=== PATIENT | male | born 1945 | race Caucasian/White ===

== ENCOUNTER 2020-10-01 11:53 | Inpatient (IN) | payer MEDICARE ==
[~2020-10-01] VITALS: Ht 182.9 cm; Wt 102.5 kg
[2020-10-01] MEDS ORDERED: CALCIUM 600 MG1 EAC2 PO (15:44)
[2020-10-01] MEDS ORDERED: ASPIRIN 81M81 MG/TA2 PO (15:47)
[2020-10-01] MEDS ORDERED: CATAPRES 0.1MG0.1 MG PO (15:49)
[2020-10-01] MEDS ORDERED: PLAVIX 75MG TAB75 MG PO (16:20)
[2020-10-01] MEDS ORDERED: HCTZ 25MG TAB25 MG PO (16:21)
[2020-10-01] MEDS ORDERED: COZAAR 50MG50 MG/TAB PO (16:23)
[2020-10-01] MEDS ORDERED: MAG-OX 400400 MG/TAB PO (16:24)
[2020-10-01] MEDS ORDERED: KAPSPARGO SPRIN25 MG PO (16:25)
[2020-10-01] MEDS ORDERED: ZOCOR 40MG40 MG PO (16:28)
[2020-10-01] MEDS ORDERED: GLUCOPHAGE1000 MG PO (16:29)
[2020-10-01] MEDS ORDERED: K-DUR20 MEQ PO (16:40)
[2020-10-01 16:56] VITALS: BP 142/80; PULSE 83; TEMP 98.3
[2020-10-01] MEDS ORDERED: NOVOLOG 100U100 U/M1 SQ (17:05)
[2020-10-01] MEDS ORDERED: ANUSOL HC CREAM30 GM TP (19:21)
[2020-10-01] MEDS ORDERED: GOOD SENSE ANTI-IT1% TP (19:21)
[2020-10-01] MEDS ORDERED: ATHLETE'S FOOT1% TP (19:22)
[2020-10-01 19:24] VITALS: BP 142/80; PULSE 83; TEMP 98.3
--- NOTE | 2020-10-01 19:40 | NUR ---
PT WAS BROUGHT FROM [facility] BY EMS TO ROOM 337 AROUND 1530. PT ALERT BUT ORIENTED ONLY TO NAME AND TIME OF DAY BASED ON WHAT HE IS DOING. PT ABLE TO ROLL WELL WITH MOD ASSIST IN BED, AND REPOSITIONS WELL IN BED. PT NOT ABLE TO FEED SELF OF DRINK ON OWN, UNABLE TO FOLLOW VERBAL CUES, NEEDS FEEDING ASSISTANCE, Q2 CHECK FOR INCONTINENCE AND TURNING. PT'S MED REC COMPLETED AND ASSESSMENT COMPLETED. PT BLIND IN LEFT EYE. TAKES PILLS CRUSHED IN PUDDING WELL FOLLOWED BY WATER THIS EVENING.
--- NOTE | 2020-10-01 20:00 | NUR ---
PT UNABLE TO ANSWER ASSESSMENT INTAKE QUESTIONS D/T IMPAIRED COGNITIVE STATUS.
--- NOTE | 2020-10-01 21:00 | NUR ---
PT RESTING IN BED. VERY FIDGITY. LT SIDED WEAKNESS. PT ANSWERS SIMPLE QUESTIONS ('S NAME, CITY HE LIVES IN & MONTH OF ) BUT AND CURRENT MONTH INCORRECT. DOESNT KNOW WHERE HE IS. SPEECH CLEAR. LT EYE BLIND BASELINE. NEEDS CUED FREQUENTLY. PT TAKES GOWN OFF MULTIPLE TIMES. BED ALARM ON SENSITIVITY LEVEL. CALL LIGHT IN REACH. PT SPILLED H20. INCONTINENT OF URINE. CHANGED DIAPERS. PT SCRATCHING AT [place]LIE AREA. CLEANED WELL AND APPLIED HYDROCORTISONE OINTMENT.
--- NOTE | 2020-10-01 22:00 | NUR ---
TOOK PILLS WITH PUDDING BUT CHEWED PILLS UP. PT ABLE TO DRINK WITH STRAW WELL. NO CHOKING.
--- NOTE | 2020-10-02 03:09 | NUR ---
PT INCONTINENT OF URINE. PT KEEPS TAKING CLOTHES, DIAPER AND LINENS OFF. PT CLEANED UP AND REPOSITIONED. BED ALARM SET. CALL LIGHT IN REACH.
[2020-10-02 05:42] VITALS: BP 164/96; PULSE 90; TEMP 97.7
--- NOTE | 2020-10-02 05:56 | NUR ---
PT RESTLESS THROUGH THE NIGHT. INCONTINENT OF URINE. CLEANED AND DISPER CHANGED AT THIS TIME.
--- NOTE | 2020-10-02 06:00 | NUR ---
PLACED ANOTHER MEPILEX ON LT HEEL.
--- NOTE | 2020-10-02 08:15 | NUR ---
GURJIT WITH OT PRESENT IN ROOM. PATIENT RESTING IN BED THIS MORNING. PATIENT SAT UP AT THE EDGE OF THE BED WITH VERBAL QUEING AND ASSISTANCE OF OT. PATIENT DENYING COMPLAINTS OF PAIN AT THIS TIME. AM MEDICATIONS CRUSHED AND ADMINISTERED WITH CHOCOLATE PUDDING. PATIENT WAS ABLE TO AMBULATE TO THE BATHROOM WITH 1-2 MIN-MOD ASSIST GB&WALKER. PATIENT REQUIRES A LOT OF VERAL QUES WITH AMBULATION. WILL COMPLETE SHIFT ASSESSMENT AT A LATER TIME. OT COMPLETING HYGIENE CARES WITH PATIENT. CALL LIGHT IN REACH. NO ADDITIONAL NEEDS AT THIS TIME.
[2020-10-02 08:23] LABS: CALCIUM 9.5 mg/dL (8.4-10.2); CREATININE, serum 0.79 (0.66-1.25); POTASSIUM 3.7 mmol/L (3.4-5.0)
--- NOTE | 2020-10-02 12:39 | NUR ---
stopped by but nothing needed at this time.
[2020-10-02 17:27] VITALS: BP 116/81; PULSE 87; TEMP 97.9
--- NOTE | 2020-10-02 18:50 | NUR ---
THIS NURSE AND WAITER/WAITRESS COCKTAIL LOUNGE CHANGED PATIENT AND ASSISTED PATIENT INTO BED. BED ALARM ON. CALL LIGHT IN REACH. REPORT GIVEN TO GREG SHAFER.
--- NOTE | 2020-10-02 21:00 | NUR ---
PT RESTING IN BED. CONFUSED. TALKING NUMBERS AND COMPUTERS W/PERCENTAGES. NOT AWARE OF PLACE OR TIME. PT COOPERATIVE. INCONTINENT OF URINE. WEARS ADULT DIAPERS. TAKE CLOTHING AND LINENS OFF FREQUENTLY. TOOK HS PILLS CRUSHED WITH PUDDING. TOOK GOOD DRINK OF H20. NO CHOKING. BASELINE BLIND LT EYE. CALL LIGHT IN REACH. BED ALARM SET.
[2020-10-03 05:47] VITALS: BP 175/60; PULSE 86; TEMP 98
--- NOTE | 2020-10-03 08:13 | NUR ---
PATIENT SITTING UP IN THE BED EATING BREAKFAST TRAY. PATIENT DENIES PAIN. PATIENT IS FIDGETING AND RESTLESS IN BED. PATIENT GIVEN PRN TYLENOL WITH MORNING MEDICATIONS. AM MEDS ADMINISTERED AT THIS TIME. BED ALARM ON. CALL LIGHT WITHIN REACH. WILL CONTINUE TO MONITOR.
--- NOTE | 2020-10-03 10:59 | NUR ---
PATIENT ASLEEP IN BED. PATIENT AROUSES EASILY TO NAME. MORNING SHIFT ASSESSMENT COMPLETED AT THIS TIME. PATIENT DENIES ADDITIONAL NEEDS.
--- NOTE | 2020-10-03 15:07 | NUR ---
Plan is still being assessed. SW called Bella Love patient's . reports that the patient resides at home and she is the healthcare management consultant. reports that they have an adult son who handles their care. reports that they do not have ADV or POA and thier son is working to set one up Param Love . repots that the pcp is Dr. Fang. reports that they reside in [place] and use [facility] for medications. Patient is reported to have a FWW walker but no other assistive devices. No concerns on medications. reports the patient has a pending appointment at [facility] on September 27 but then the patient had a stoke. reports that she is not sure what they may need at home at this time. Will reassess. Will follow,
[2020-10-03 16:59] VITALS: BP 172/90; PULSE 82; TEMP 98.2
--- NOTE | 2020-10-03 18:32 | NUR ---
PATIENT SITTING UP EATING DINNER TRAY AND WATCHING TV. BED ALARM ON. CALL LIGHT WITHIN REACH. WILL REPORT OFF TO ONCOMING NURSE.
--- NOTE | 2020-10-03 20:00 | NUR ---
PT RESTING IN BED. TAKING OFF CLOTHING AND DIAPER. PT CONFUSED CONVERSATION. PT REPORTS HE WAS BORN IN 1980 AND PRESENT YEAR IS 1980. PT DOES TALK ABOUT HIS CAREER PRIOR TO SENIOR CARE. HAS LEFT SIDED WEAKNESS. BASELINE LT EYE BLINDNESS. PT CONTINULLY DIGS IN CHARLIE AREA. AREA WASHED WELL AND HYDROCORTISONE OINTMENT APPLIED. CALL LIGHT IN REACH. BED ALARM SET.
[2020-10-03 20:24] VITALS: BP 162/80; PULSE 91
[2020-10-04 05:34] VITALS: BP 150/85; PULSE 92; TEMP 98.2
--- NOTE | 2020-10-04 13:07 | NUR ---
Admission QIM scores were reviewed by the team. Code of 1 chosen for eating was determined by team discussion to be the most usual performance for this patient during the assessment period. Code of 2 chosen for toilet hygiene was determined by team discussion to be the most usual performance for this patient during the assessment period. Code of 2 chosen for upper body dressing was determined by team discussion to be the most usual performance for this patient during the assessment period. Code of 2 chosen for lower body dressing was determined by team discussion to be the most usual performance for this patient during the assessment period. Code of 88 chosen for walk 50 feet w/ 2 turns was determined by team discussion to be the most usual performance for this patient during the assessment period.--Delfina Epperson, PD
[2020-10-04 17:36] VITALS: BP 130/67; PULSE 99; TEMP 98.1
--- NOTE | 2020-10-04 18:53 | NUR ---
PT DENIES PAIN WHEN ASKED TODAY, REMAINS Q2 HOUR CHECKS. ATTEMPTED TO USE URINAL AT EACH CHECK AND PT WAS SUCCESSFUL ONCE THIS AM. DAY PROGRESSED, PT BECAME MORE FATIGUED EASILY AND WOULD NOT CONTINUE STANDING WHEN CUED TO. PT DOES NOT FOLLOW CUES WELL AND IS VERY IMPULSIVE WITH HIS MOVEMENTS.
--- NOTE | 2020-10-04 22:15 | NUR ---
ALERT AND O TO SELF ONLY. SETTING IN RECLINER WATCHING TV. PM MEDS CRUSHED AND PUT IN APPLESAUCE. LEFT SIDE WEAKNESS NOTED IN GARNETT MACHINE OPERATOR. ASST W WALKER TO BED. TAKES OFF SHIRT AND DOSE NOT WANT A CLEAN SHIRT OR GOWN ON. TREATED BS PER SLIDING SCALE DOSE. POC DISCUSSED. PT NEEDS MET.
[2020-10-05 03:48] VITALS: BP 129/65; PULSE 60; TEMP 97
--- NOTE | 2020-10-05 09:08 | NUR ---
Patient resting in bed, call light in reach and bed alarm set. Patient takes pills crushed in applesauce. Patient currently watching TV following his morning assessement. Will continue to monitor.
--- NOTE | 2020-10-05 11:17 | NUR ---
Patient resting in recliner watching TV at this time, call light in reach and chair alarm set. Will continue to monitor.
--- NOTE | 2020-10-05 16:34 | NUR ---
Patient resting in bed, call light in reach and bed alarm set. Patient denies pain at this time. He attended all therapies today and is tolerating diet well. He requires staff to feed him as he requires lots of queing and assistance with getting food in the spoon and up to his mouth. Patient denies questions at this time.
[2020-10-05 17:55] VITALS: BP 129/60; PULSE 93; TEMP 98.3
--- NOTE | 2020-10-05 19:32 | NUR ---
RECEIVED CHANGE OF SHIFT REPORT FROM DAY SHIFT NURSE. BED ALARM ON WHEN IN BED.
[2020-10-06 05:01] VITALS: BP 155/72; PULSE 85; TEMP 97.7
--- NOTE | 2020-10-06 06:59 | NUR ---
CHANGE OF SHIFT REPORT GIVEN TO DAY SHIFT NURSE, ROSEANN GARZA.
--- NOTE | 2020-10-06 10:14 | NUR ---
Initial visit; Patient thanked Colorectal Surgeon for looking in on him and offering encouragement and God's blessings.
[2020-10-06 14:42] VITALS: BP 134/73; PULSE 84; TEMP 98.6
--- NOTE | 2020-10-06 16:11 | NUR ---
Word Processor contacted the patient's son, Param to discuss the Team Conference Note and the plan for a family meeting next week, 10/13 at 1345. Param was agreeable to that date and time. The team will re-evaluate the patient's progress next week. He reports the is on his way to visit the patient and will review the TCN once he arrives. SW met with the patient to inform him his son and were on their way. He said "ok." There are no additional needs at this time.
--- NOTE | 2020-10-06 19:18 | NUR ---
RECEIVED CHANGE OF SHIFT REPORT FROM DAY SHIFT NURSE. BED ALARM ON WHEN IN BED.
--- NOTE | 2020-10-06 19:27 | NUR ---
Patient attended all therapies this shift. He required staff assistance with feeding with each meal. Patient requires his pills to be crushed and eaten with either pudding or applesauce.
--- NOTE | 2020-10-06 19:34 | NUR ---
Patient requiring much redirection and queing. Patient was incontinent of stool and urine multiple times this shift. He was a max assist with one toilet transfer today. Family stopped by to see patient eralier this evening. Patient is currently resting in bed, call light in reach and bed alarm set. Reported off to night nurse.
--- NOTE | 2020-10-06 20:00 | NUR ---
PATIENT CONTINUES WITH INCONTINENT, REQUIRES CONSTANT CUES WITH REPOSITIONING FROM SIDE TO SIDE DUE COGNITIVE AFFECT FROM STROKE AND DEMENTIA. SPEECH NOT SLURRED, NO OBSERVED PROBLEMS WITH SWALLOWING AT THIS TIME.
--- NOTE | 2020-10-06 23:04 | NUR ---
PATIENT SLEEPS, AWAKENS TO TOUCH, REMAINS DRY TO ADULT INCONT BRIEFS AT THIS TIME. BED ALARM ON.
--- NOTE | 2020-10-07 01:03 | NUR ---
PATIENT SLEEPS DOES NOT WAKE WHEN ROOM ENTERED BY STAFF NURSE. OBSERVED ADULT PULL UP DRY TO TOUCH. BED ALARM ON.
[2020-10-07 04:51] VITALS: BP 157/88; PULSE 90; TEMP 97.2
--- NOTE | 2020-10-07 06:47 | NUR ---
CHANGE OF SHIFT REPORT GIVEN TO DAY SHIFT NURSE, LILY GARZA.
--- NOTE | 2020-10-07 09:53 | NUR ---
PT RESTED WELL AFTER MELATONIN GIVEN LAST NIGHT, WAS ASSISTED WITH BREAKFAST, MEDS CRUSHED AND GIVEN IN PUDDING. PT A Q2 CHECK FOR INCONTINENCE. DENIES PAIN THIS AM.
--- NOTE | 2020-10-07 10:08 | NUR ---
Follow up visit; Patient said Good morning when Financial Administration Officer offered "Good morning and God Bless."
[2020-10-07 16:40] VITALS: BP 136/80; PULSE 80; TEMP 97.5
[2020-10-07 16:44] VITALS: BP 119/76; PULSE 85; TEMP 97.9
[2020-10-08 05:22] VITALS: BP 138/55; PULSE 87; TEMP 97.9
[2020-10-08 05:29] VITALS: BP 143/81; PULSE 89; TEMP 97.8
--- NOTE | 2020-10-08 08:25 | NUR ---
Patient resting in bed, call light in reach and currently working with PT at this time. Patient required to be fed this morning and takes pills crushed in pudding.
--- NOTE | 2020-10-08 14:59 | NUR ---
Patient attended all morning therapies and ate a good breakfast and lunch. This afternoon patient was very tired and did not participate in much for Occupational Therapy. He is currently resting in recliner, call light in reach and alarm set. Patient was not able to feed self this afternoon. He attempted to feed himself, but would drop the food before it got to his mouth and then pushed tray away and would not eat until this nurse sat down and fed him. He ate about 90% of his food with assistance.
--- NOTE | 2020-10-08 16:06 | NUR ---
Patient repositioned in recliner, call light in reach and chair alarm set. Patient didn't want his pillow by his side so he threw it across the room. This nurse picked it up and made sure he didn't need anything else. Will continue to monitor.
[2020-10-08 17:59] VITALS: BP 153/86; PULSE 99; TEMP 97.4
--- NOTE | 2020-10-08 21:00 | NUR ---
PT RESTING IN BED. CONFUSED X3. KNOWS HIS NAME. SPEECH CLEAR BUT HAS INAPPROPRIATE CONVERSATION. WEARS GLASSES. LT EYE HAZY- BLIND- CHRONIC HX. PT REPOSITIONS SELF SIDE O SIDE FOR COMFORT. PT TAKES CLOTHING AND LINENS OFF FREQUENTLY. WEARS DIAPERS FOR INCONTINENCY. BED ALARM SET. CALL LIGHT IN REACH. SEE MAR FOR TYLENOL GIVEN AND MELATONIN.
[2020-10-09 05:41] VITALS: BP 148/73; PULSE 88; TEMP 97.9
[2020-10-09 16:31] VITALS: BP 91/58; PULSE 107; TEMP 98.3
[2020-10-09 17:00] VITALS: BP 138/99; PULSE 95
--- NOTE | 2020-10-09 18:48 | NUR ---
Patient has done well thoughout the day; up to recliner for all meals. Incontinent care provided. Alert and oriented to self. Denies pain throughout the day, Redness noted to coccyx. denies needs at this time. reported off to night stocker.
--- NOTE | 2020-10-09 20:33 | NUR ---
PT IN BED. ANSWERS TO HIS NAME AND ABLE TO TELL THIS NURSE HIS YEAR. THINKS HE IS IN [facility]. TAKES HS MEDS CRUSHED IN APPLESAUCE, INCLUDING MELATONIN AND TYLENOL. INCONTINENT OF URINE, CHARLIE CARES GIVEN. BED ALARM ON.
[2020-10-09 20:48] VITALS: BP 144/88
[2020-10-10 04:18] VITALS: BP 149/81; PULSE 83; TEMP 98.9
[2020-10-10 07:03] LABS: CALCIUM 9.4 mg/dL (8.4-10.2); CREATININE, serum 0.9 (0.66-1.25); MAGNESIUM 1.7 mg/dL (1.6-2.3); POTASSIUM 4.1 mmol/L (3.4-5.0)
--- NOTE | 2020-10-10 08:34 | NUR ---
UPON ENTRY TO THE ROOM THE PATIENT WAS HOLDING HIS SHIRT UP TO HIS FACE PATIENT SAT UP AT 90 DEGREES. PATIENT HAD MODERATE AMOUNT OF EMESIS THAT CONSISTED OF THE PATIENTS BREAKFAST. TRAE KELLY CALLED AND NOTIFIED OF EMESIS AND NO ANTIEMETICS ON PATIENTS CHART.
--- NOTE | 2020-10-10 08:39 | NUR ---
PRN PO ZOFRAN ODT GIVEN TO PATIENT. SHIFT ASSESSMENT COMPLETED AT THIS TIME. PATIENT SITTING UP IN BED AT 90 DEGREES. PATIENT DENIES PAIN. BED ALARMS ON. CALL LIGHT WITHIN REACH. WILL CONTINUE TO MONITOR.
--- NOTE | 2020-10-10 09:08 | NUR ---
0645- Pt. in bed with attends partially off;male pad wet and attends plus x2 chuxs;max to change w/multiple verbal and tactile cues to turn; cleaned and attends/male pad and chux replaced;multiple tactile and verbal cues to reposition pt. to HOB of bed max x1 assist to follow instructions. boiler testing technician to draw blood and pt. able to follow instructions to hold still. Pt. at 90 degrees.Max to feed and to take fluids w/occasional choking mainly w/fluids w/ and w/o straw. pt. able to follow most instructions.
--- NOTE | 2020-10-10 09:32 | NUR ---
PATIENT STATES THAT THE NAUSEA IS MUCH BETTER. MORNING MEDICATIONS ADMINISTERED CRUSHED WITH CHOCOLATE PUDDING. PATIENT TOLERATED WELL. PATIENT DENIES ANY OTHER NEEDS AT THIS TIME.
[2020-10-10 16:49] VITALS: BP 135/75; PULSE 103; TEMP 98.9
--- NOTE | 2020-10-10 18:20 | NUR ---
ATTEMPTED TO CALL ROBE CHAVEZ REGARDING PATIENTS NAUSEA AND IF INSULIN SHOULD BE HELD DUE TO PATIENT REFUSING TO EAT. THIS NURSE ADMINISTERED PRN PO ODT ZOFRAN. WAITING FOR RETURN CALL.
--- NOTE | 2020-10-10 18:42 | NUR ---
RECEIVED CHANGE OF SHIFT REPORT FROM DAY SHIFT NURSE.
--- NOTE | 2020-10-10 18:56 | NUR ---
REPORT GIVEN TO GREG CHAUDHARY.
--- NOTE | 2020-10-10 20:57 | NUR ---
PATIENT RESTING, AWAKENS WITH NAME CALLED, PATIENT FOLLOWS SOME COMMANDS BUT DOES NOT VERBALIZE ANSWERS APPROPRIATELY AT TIMES. TOLERATED SMALL SIPS OF WATER. ABD SOFT, NOT DISTENDED WITH ACTIVE BOWEL SOUNDS.
--- NOTE | 2020-10-10 21:35 | NUR ---
PATIENT COUGHING FREQUENTLY WITH REPOSITIONING, OBSERVED WITH COUGHING, DRY HEAVES WITH NO MEDS GIVEN D/T DRY HEAVING AND FREQUENTLY COUGHING AFTER REPOSITIONING. OBSERVED WEAKNESS TO LEFT SIDE WITH NO FACIAL DROOPING OBSERVED AND NO PROBLEMS WITH SWALLING SMALL AMOUNTS OF THIN LIQUIDS AT THIS TIME.
--- NOTE | 2020-10-11 00:48 | NUR ---
PATIENT SLEEPS, WAKES WHEN NAME CALLED. BED ALARM ON.
[2020-10-11 05:09] VITALS: BP 146/90; PULSE 113; TEMP 100.5
--- NOTE | 2020-10-11 05:48 | NUR ---
OBSERVED TEMP, PATIENT REPORTED FEELING HOT AT THIS TIME. NO CHILLING OBSERVED, SKIN DRY. OBSERVED BREATHING NONLABORED WITH NONPRODUCTIVE INTERMITTENT COUGHING OBSERVED, NO VOMITING WITH COUGHING AT THIS TIME. PATIENT REPORTS WHEN ASKED HIS "STOMACH FEELS BETTER"
[2020-10-11 06:00] VITALS: TEMP 98.4
--- NOTE | 2020-10-11 06:55 | NUR ---
CHANGE OF SHIFT REPORT GIVEN TO DAY SHIFT NURSE, LILY GARZA.
--- NOTE | 2020-10-11 09:50 | NUR ---
REPORTED THAT PT WAS VOMITTING YESTERADY AND REQUIRED ZOFRAN FOR NAUSEA, NIGHT MEDS NOT GIVEN. TEMPERATURE OF 100.5 THIS AM, PO APAP TOLERATED AND TEMP WAS NORMAL AN HOUR AFTER RECHECK AND TWO HOURS AFTER RECHECK. PT NOTED TO BE VERY SWEATY, COUGHING WHICH IS NON PRODUCTIVE, LUNG SOUNDS DIMINISHED, NOT COURSE. PT IS LESS ALERT AND ORIENTED THEN USUAL UNABLE TO GET VERBAL RESPONSE MAJORITY OF THE TIME. ONLY ABLE TO AMBULATE 10 FEET WITH THERAPY THIS AM, PRIOR WAS 100+. COUGHING NOTED WITH BREAKFAST, SO BREAKFAST STOPPED. WILL UPDATE DR. PABON THIS AM.
[2020-10-11 11:20] VITALS: TEMP 98.4
--- NOTE | 2020-10-11 11:35 | NUR ---
SW met with the patient to introduce oneself and to follow up after the weekend. The patient states that he is doing fairly well. SW to continue to follow.
[2020-10-11 13:02] LABS: HEMATOCRIT 44.7 % (42.0-52.0); HEMOGLOBIN 15.4 g/dl (13.5-18.0); MEAN CELL VOLUME 96 fl (80.0-100.0); MEAN CORPUSCULAR HEMOGLOBIN 33 pg (27.0-31.0); MEAN CORPUSCULAR HGB CONC 35 g/dl (33.0-37.0); MEAN PLATELET VOLUME 10.3 fl (7.4-10.4); PLATELET COUNT 192 K/mm3 (130-400); RED BLOOD COUNT 4.68 M/mm3 (4.20-5.60)
[2020-10-11 13:43] LABS: ALBUMIN 4.1 gm/dL (3.5-5.0); CALCIUM 9.6 mg/dL (8.4-10.2); POTASSIUM 4.6 mmol/L (3.4-5.0); TOTAL PROTEIN 7.4 gm/dL (6.4-8.2)
[2020-10-11 13:55] LABS: BAND 8 % (0-10); LYMPHOCYTE 4 % (20.0-51.0); NEUTROPHILS 84 % (42.0-75.2); PLATELET ESTIMATE NORMAL (NORMAL)
[2020-10-11 15:22] VITALS: BP 108/56; PULSE 105; TEMP 98.4
--- NOTE | 2020-10-11 15:31 | NUR ---
LEEANNE LARKIN NOTIFIED THIS AM OF PT'S STATUS, TACHY, FEBRILE THIS AM PRIOR TO APAP ADMINISTRATION, VOMITTING YESTERDAY, DRY COUGH FREQUENTLY SINCE YESTERDAY. BLOOD CULTURES, CBC, LACTIC ACID, C-XRAY, UA ORDERED. DR. PABON ORDERED CLINDAMYCIN IV TO BE STARTED. CBC CAME BACK WITH CRITICAL WBC OF 23.9 CALLED TO LEEANNE LARKIN. 22G IV STARTED IN [facility], PT PULLED THIS OUT PRIOR TO ABX BEING ADMINISTERED, NEW 22G IV STARTED IN [facility]. ORDER FOR MITTS OBTAINED BY LEEANNE LARKIN AND APPLIED.
[2020-10-11 17:33] LABS: COLLECTION METHOD CLEAN CATCH
[2020-10-11 18:02] LABS: MUCOUS Present /lpf; PH 5 (5-8); SQUAMOUS EPITHELIAL 0-2 /hpf; URINE APPEARANCE Cloudy; URINE BACTERIA Occasional /hpf; URINE BILIRUBIN Negative (NEGATIVE); URINE BLOOD 1+ (NEGATIVE); URINE COLOR Yellow; URINE GLUCOSE 1+ (NEGATIVE); URINE KETONE Negative (NEGATIVE); URINE LEUKOCYTE ESTERASE 3+ (NEGATIVE); URINE NITRATE Negative (NEGATIVE); URINE PROTEIN(semi-quant) 1+ (NEGATIVE); URINE UROBILINOGEN Negative (NEGATIVE)
--- NOTE | 2020-10-11 19:15 | NUR ---
RECEIVED CHANGE OF SHIFT REPORT FROM DAY SHIFT NURSE.
--- NOTE | 2020-10-11 19:37 | NUR ---
PT STRAIGHT CATHETERIZED ONE ATTEMPT WITH 16 TONGAN FOR UA COLLECTION. URINE YELLOW CLOUDY ANS FOUL SMELLING.
--- NOTE | 2020-10-11 20:00 | NUR ---
OBSERVED PATIENT WITH INAPPROPRIATE RESPONSES TO QUESTIONS, FOLLOWS COMMANDS AT TIMES. IVF INFUSING TO RFA SITE. BED ALARM ON WHEN IN BED.
[2020-10-11 21:34] VITALS: BP 142/73
[2020-10-12 04:36] VITALS: BP 164/88; PULSE 116; TEMP 98.6
--- NOTE | 2020-10-12 07:03 | NUR ---
CHANGE OF SHIFT REPORT GIVEN TO DAY SHIFT NURSE, LILY GARZA.
[2020-10-12 07:11] LABS: MEAN CELL VOLUME 96 fl (80.0-100.0); MEAN CORPUSCULAR HEMOGLOBIN 33 pg (27.0-31.0); MEAN CORPUSCULAR HGB CONC 34 g/dl (33.0-37.0); MEAN PLATELET VOLUME 10.8 fl (7.4-10.4); PLATELET COUNT 159 K/mm3 (130-400); RED BLOOD COUNT 3.95 M/mm3 (4.20-5.60); REDCELL DISTRIBUTION WIDTH-CV 12.9 % (11.5-14.5)
[2020-10-12 07:20] LABS: CALCIUM 8.6 mg/dL (8.4-10.2); CREATININE, serum 1.03 (0.66-1.25); POTASSIUM 3.9 mmol/L (3.4-5.0)
[2020-10-12 07:22] LABS: HEMOGLOBIN 12.9 g/dl (13.5-18.0)
[2020-10-12 08:14] LABS: BAND 13 % (0-10); LYMPHOCYTE 1 % (20.0-51.0); NEUTROPHILS 82 % (42.0-75.2); PLATELET ESTIMATE NORMAL (NORMAL)
--- NOTE | 2020-10-12 09:38 | NUR ---
PT DIFFICULT TO AROUSE FROM SLEEP THIS AM. THIS NURSE ASSISTED WITH MEDICATION ADMINISTRAION, PILLS CRUSHED WITH SUGAR FREE PUDDING. THEN MOVED ON TO ASSIST WITH BREAKFAST, PT TOOK ONE BITE OF EGGS AND SAUSAGE AND A DRINK AND VOMITTED UP PUDDING AND MEDICATIONS. LEEANNE LARKIN NOTIFIED, WILL SEE WHAT CAN BE CONVERTED TO IV MEDICATIONS. ST TO REVAL HIS SAFETY WITH SWALLOWING AND EATING. PT PLACED ON TELE MONITOR THIS AM FOR TACHYCARDIA.
[2020-10-12 12:00] VITALS: BP 158/84; PULSE 96; TEMP 98.1
--- NOTE | 2020-10-12 14:09 | NUR ---
Team meeting was scheduled at 0930 tomorrow. DIETER contacted the patient's son, Param, to ask about moving up the patient/family meeting. The meeting was rescheduled to 1315 tomorrow. DIETER notified IPR Director. Param reports that he also has a copy of the patient's DPOA-HC and will bring it to the hospital tomorrow. He reports that the patient's is his DPOA-HC and he is the alternate.
[2020-10-12 16:00] VITALS: BP 162/91; PULSE 110; TEMP 99.6
--- NOTE | 2020-10-12 18:47 | NUR ---
RECEIVED CHANGE OF SHIFT REPORT FROM DAY SHIFT NURSE.
--- NOTE | 2020-10-12 18:56 | NUR ---
PT CONTINUES Q2 CHECK FOR INCONTINENCE. PT WAS MADE NPO AFTER SPEECH EVAL UNTIL CT SCANS LATE IN THE AFTERNOON. FOR DINNER PT KEPT FOOD DOWN AND ATE 95% OF FOOD. SCANS SHOWED CYSTITIS, FLUIDS CONTINUED OVERNIGHT. PT CHANGED TO NECTAR THICKENED LIQUIDS BY
[2020-10-12 19:46] VITALS: BP 162/103; PULSE 105; TEMP 99.1
--- NOTE | 2020-10-12 20:00 | NUR ---
PATIENT RESTING, TELE IN PLACE. BED ALARM ON. BREATHING NONLABORED AND EVEN WITH OCCASIONAL NONPRODUCTIVE COUGH OBSERVED. PATIENT TOLERATING PO INTACT AT THIS TIME. PATIENT TOLERATING NECTAR THICK LIQUIDS. IVF INFUSING WITH NO PROBLEMS AT THIS TIME.
[2020-10-13 00:14] VITALS: BP 157/54; BP 157/74; PULSE 95; TEMP 97.4
--- NOTE | 2020-10-13 02:14 | NUR ---
PATIENT SLEEPING, BREATHING NONLABORED AND EVEN. BED ALARM ON. DOES NOT WAKE WHEN ROOM ENTERED BY STAFF OR WHEN ADULT PULL UP ARE CHECKED FOR INCONTINENCE.
[2020-10-13 03:30] VITALS: BP 152/88; PULSE 88; TEMP 98.2
[2020-10-13 06:56] LABS: BASO % 0.2 % (0.0-2.0); EOS # 0.1 (0.0-0.7); EOS % 1.4 % (0-4.0); GRAN # 7.4 (1.4-6.5); HEMATOCRIT 37.7 % (42.0-52.0); HEMOGLOBIN 12.7 g/dl (13.5-18.0); LYMPH # 0.4 (1.2-3.4); LYMPH % 4.6 % (20.0-51.0); MEAN CELL VOLUME 96 fl (80.0-100.0); MEAN CORPUSCULAR HEMOGLOBIN 33 pg (27.0-31.0); MEAN CORPUSCULAR HGB CONC 34 g/dl (33.0-37.0); MEAN PLATELET VOLUME 10.6 fl (7.4-10.4); MONO # 0.6 (0.1-0.6); MONO % 7.3 % (1.7-9.3); PLATELET COUNT 178 K/mm3 (130-400); RED BLOOD COUNT 3.91 M/mm3 (4.20-5.60); REDCELL DISTRIBUTION WIDTH-CV 13.1 % (11.5-14.5)
[2020-10-13 06:57] LABS: CALCIUM 8.2 mg/dL (8.4-10.2); CREATININE, serum 0.79 (0.66-1.25); POTASSIUM 3.7 mmol/L (3.4-5.0)
--- NOTE | 2020-10-13 07:27 | NUR ---
CHANGE OF SHIFT REPORT GIVEN TO DAY SHIFT NURSE, ROSEANN GARZA.
[2020-10-13 07:38] VITALS: BP 161/90; PULSE 96; TEMP 99.1
[2020-10-13 11:53] VITALS: BP 144/98; PULSE 99; TEMP 98.2
--- NOTE | 2020-10-13 15:03 | NUR ---
Picture Hanger attempted to present the Team Conference Note to the patient. The was sleeping and hard rouse.
--- NOTE | 2020-10-13 15:18 | NUR ---
SW attended the patient/family meeting. The patient's son, Param, and , Bella, were at beside. Also present was IPR Director, PT, OT, and ST. IPR Director started by explaining the purpose of the meeting. PT/OT/ST then discussed the patient's progress so far. Therapy informed the family that with the patient's recent UTI, the patient has had a decline. He has been a total assist at times. At this time, the plan is to re-evaluate the patient next Sunday. Param and Bella were agreeable to the plan. IPR Director also discussed how the plan will most likely be SNF or home with / supervision. Param and Bella report that they are working on modifications in the home for the patient. They will think about the options. The team answered all questions.
[2020-10-13 16:03] VITALS: BP 133/71; PULSE 78; TEMP 98.1
--- NOTE | 2020-10-13 17:54 | NUR ---
Patient required to be fed for breakfast, lunch and supper this shift. Patient was on IV fluids this morning and received an antibiotic via IV as well. See new orders to DC IV fluids, Tele and IV. IV was pulled and was intact. Patient tolerated well, with no discomfort reported. Patient's tele was removed and returned to ICU this afternoon. He has had a non productive cough, so no sputum sample was able to be collected. He is currently resting in bed following eating his supper, call light in reach and bed alarm is set. Will continue to monitor.
[2020-10-14 05:23] VITALS: BP 166/87; PULSE 91; TEMP 97.9
--- NOTE | 2020-10-14 05:58 | NUR ---
PATIENT RESTED QUIETLY IN BED THROUGHOUT THE SHIFT. APPEARED TO GO TO SLEEP AROUND 2300. PATIENT CHECKED AND CHANGED Q 2 HOURS. NO NEW ISSUES NOTED OR REPORTED BY PATIENT.
--- NOTE | 2020-10-14 08:23 | NUR ---
Patient resting in bed, call light in reach and ate his breakfast this morning with STRADDLE BUG OPERATOR/Samy feeding him. Patient denies pain at this time.
--- NOTE | 2020-10-14 09:17 | NUR ---
Initial visit; Patient thanked Roll Form Operator for looking in on him and wishing him well and offering God's blessings.
--- NOTE | 2020-10-14 10:28 | NUR ---
Patient had nausea this morning and was given prn zofran following his breakfast. After waiting a half hour patient was given his morning meds as usual. They were crushed and given with pudding. Patient did not report any more nausea. Patient reported to SOREN/Samy that he needed to urinate, but was not able to at that time. Bladder scan was completed on patient after his morning void and Large BM. It showed greater then 775 ml with scan. Call placed to TRAE Jenkins asking for an order for a Straight Cath. This was received. Straight cath using 20 gauge coude preformed with out put of 250 ml as well as some bladder spasms where patient was incontinent of urine when preforming the straight cath. Follow up bladder scan was preformed with 350 ml reported. Patient tolerated procedure with mild discomfort reported. Patient is currently sitting up in bed and working with Speech Therapy. Will continue to monitor.
--- NOTE | 2020-10-14 15:33 | NUR ---
Patient had an episode of nausea this afternoon with no emesis. Given prn zofran and was effective. Patient participated in all his therapies this shift. He did have another urinary incontinence when working with OT this afternoon of which he soaked his brief and clothing. Patient was changed by OT. He is currently resting in recliner, call light in reach and alarm is set. Will continue to monitor.
[2020-10-14 18:09] VITALS: BP 131/76; PULSE 85; TEMP 97.7
--- NOTE | 2020-10-14 18:51 | NUR ---
Patient was dependent with eating requiring staff to feed him. He took his pills crushed with pudding this evening and ate all his supper. He is currently resting in bed, call light in reach and bed alarm set. Will continue to monitor.
--- NOTE | 2020-10-14 21:00 | NUR ---
PT RESTING IN BED. BASELINE BLINDNESS LEFT EYE. PT CONFUSED MARYAN CALM. PT HAS INAPPROPRIATE CONVERSATION. PT INCONTINENT BUT DRY AT THIS TIME. NO BLADDER FULLNESS NOTED. SEE MAR FOR PREVENTATIVE DISCOMFORT WITH TYLENOL. MEDS CRUSHED WITH PUDDING. DOES NOT LIKE NECTAR THICK LIQUIDS. NO CHOKING NOTED. CALL LIGHT IN REACH. BED ALARM SET. PPT WATCHING TV.
--- NOTE | 2020-10-15 05:04 | NUR ---
PT INCONTINENT URINE THROUGH THE NIGHT. BLADDER SCANNED TO CHECK RESIDUAL. RESIDUAL OF 282CC AT THIS TIME. PT HAS BEEN RESTING THROUGH THE NIGHT COMFORTABLY.
[2020-10-15 05:39] VITALS: BP 166/86; PULSE 79; TEMP 97.6
--- NOTE | 2020-10-15 08:39 | NUR ---
PT ALERT AND PLEASANT THIS AM, STATED HE NEEDED TO VOID AND URINAL PLACED. PT DID NOT GO BUT WAS INCONTINENT AT THIS TIME IN BRIEF. CLEANSED AND CHANGED PRIOR TO THERAPY. AM MEDICATIONS WITH PUDDING, PT ATE WELL FOR BREAKFAST AND NO ISSUES WITH NAUSEA NOTED THIS AM.
--- NOTE | 2020-10-15 10:19 | NUR ---
DIETER met with the patient to follow up before the weekend. The patient was sitting up in his chair. He reports that he is doing good and that therapy went good this morning. He had no questions for DIETER at this time.
[2020-10-15 16:47] VITALS: BP 140/66; PULSE 87; TEMP 97.8
--- NOTE | 2020-10-15 17:43 | NUR ---
PT DENIES PAIN, DIZZINESS, NAUSEA, OR ANY ISSUES TODAY. FREQUENT CHECKS AND TAKING/OFFERING BATHROOM TO PT FREQUENTLY. MED BM TODAY CONTINENT ON THE TOILET. PT IS MUCH MORE ALERT AND PHYSCIALLY ABLE TO PERFORM TASKS TODAY.
--- NOTE | 2020-10-15 22:14 | NUR ---
PT RESTING IN BED. ALERT. CONFUSED BUT ANSWERS SOME QUESTIONS APPROPRIATELY. LT EYE BLIND BASELINE. LEFT SIDED WEAKNESS. TAKES PILLS CRUSHED WITH PUDDING. NO CHOKING. DOES NOT LIKE NECTAR THICK FLUIDS. SEE MAR FOR TYLENOL GIVEN PREVENTATIVELY. INCONTINENT OF URINE. WERS DIAPERS. CALL LIGHT IN REACH. BED ALARM SET.
[2020-10-16 05:37] VITALS: BP 160/82; PULSE 87; TEMP 97.8
--- NOTE | 2020-10-16 10:54 | NUR ---
Patient was a one person mod assist with standing up and then transferring to the bathroom toilet using gait belt and walker. He was dependent with feeding and ate 100% of his breakfast. He attended therapies this morning and was returned to his recliner via therapy. This nurse was transferring another patient and heard this patient's chair alarm go off. By the time this nurse got to his room patient was already standing and trying to transfer to the bathroom on his own, but staff from surgical had arrived before this nurse to assist patient. Patient was educated on the need to use his call light, but is very forgetful. He is currently resting in recliner, call light in reach and alarm set. He denies pain or any questions at this time. Will continue to monitor.
--- NOTE | 2020-10-16 14:36 | NUR ---
Patient ate all his breakfast and required total assist with feeding this afternoon. His chair alarm went off and patient was found standing in front of his recliner trying to stand. When this nurse asked him where he was going he said to the bathroom. He was transferred to the bathroom and was a one mod assist with a lot of queing. This nurse changed patient's incontinent brief and then patient decided to go to bed. He is currently resting in bed, call light in reach and bed alarms set. Will continue to monitor.
--- NOTE | 2020-10-16 19:00 | NUR ---
PT SITTING UP IN CHAIR. REPORT FROM ROSEANN GARZA INDICATE PT MORE IMPULSIVE. PT SCOOTING TO EDGE OF CHAIR. ASSIST PT TO BR WITH WALKER. NEEDS MUCH CUING. ESPECIALLY FOR SAFETY. PT VOIDED. CHANGED ADULT BRIEFS FOR INCONT. ASSISTED TO BED. PT REMAIN CONFUSED AND HAS DIFFICULTY FOLLOWING DIRECTION. CALL LIGHT IN REACH BED ALARM SET. SCD'S ON.
[2020-10-17 05:53] VITALS: BP 156/67; PULSE 84; TEMP 98.1
--- NOTE | 2020-10-17 09:59 | NUR ---
Patient did feed himself at times, with queing, but this nurse assisted him with eating, because he gets distracted often and forgets what he is doing. Patient resting in recliner watching TV at this time.
--- NOTE | 2020-10-17 10:48 | NUR ---
Patient resting in recliner drinking his water.
--- NOTE | 2020-10-17 12:04 | NUR ---
Took patient for a short walk from room to the big hallway and then turned around due to patient reporting of an incontinent bowel movement. Patient was taken to the bathroom and cleaned up. He was dependent with changing his shorts and brief. He was then transferred to the bed and is resting at this time. Will continue to monitor.
--- NOTE | 2020-10-17 15:41 | NUR ---
Patient ate all his lunch this shift. Family stopped by to see him and took his laundry home to wash.
[2020-10-17 15:52] VITALS: BP 147/88; PULSE 87; TEMP 97.8
--- NOTE | 2020-10-17 20:00 | NUR ---
PT SITTING IN RECLINER. FOUND HIM TRYING TO SLIDE DOWN IN CHAIR. 2:1 ASSIST TO STAND. TRANSFERRED TO BED. CONFUSED MOST OF THE TIME. INCONTINENT OF URINE. CLEANED UP. TOOK HS MEDICATIONS CRUSHED WITH PUDDING. HAS OCCASIONAL DRY NONPRODUCTIVE COUGH. NO CHOKING. CALL LIGHT IN REACH. BED ALARM SET.
[2020-10-18 05:43] VITALS: BP 154/82; PULSE 85; TEMP 97.7
--- NOTE | 2020-10-18 14:35 | NUR ---
SW met with the patient to follow up after the weekend. The patient states that the weekend went just fine. He had no questions for SW at this time.
[2020-10-18 17:46] VITALS: BP 165/66; PULSE 90; TEMP 98.2
--- NOTE | 2020-10-18 17:52 | NUR ---
Patient resting in bed at this time. Patient is alert and participates in conversations if prompted, but is not fully oriented or appropriate in behavior. Has demonstrated impulsive behaviors by attempting to get up unassisted. Patient has been able to be continent of some bowel and bladder today. Patient has also been able to feed himself with supervision, requiring minimal cuing and assistance. Patient denies pain or needs, call light within reach.
--- NOTE | 2020-10-18 20:00 | NUR ---
PATIENT WAS RECEIVED FAIR IN BED.DENIES PAIN.NO NEEDS AT THIS TIME.
[2020-10-19 04:56] VITALS: BP 145/100; PULSE 85; TEMP 98.4
--- NOTE | 2020-10-19 17:45 | NUR ---
Patient resting in bed at this time. Patient is alert and paritially oriented, still impulsive and inappropriate at times. Patient has been able to feed himself with supervision, does still require some help with meals. Patient c/o some nausea at lunch today, administered PRN antiemetic and had no further complaints. Patient has not complained of pain, bed alarm on, call light within reach.
[2020-10-19 17:49] VITALS: BP 118/55; BP 18/55; PULSE 90; TEMP 98.2
--- NOTE | 2020-10-19 20:50 | NUR ---
Assessment complete. Pt is alert but confused; cannot answer orientation questions appropriately. Pt denies having any pain at this time. He is sitting up in the bed watching TV at this time and he denies further needs. Call light within reach.
[2020-10-20 06:23] VITALS: BP 120/59; PULSE 66; TEMP 98
--- NOTE | 2020-10-20 11:46 | NUR ---
DIETER contacted the patient's son, Param, to review the IPR Team Conference note. The team is recommending SNF upon discharge and a d/c date has been set for this Sunday, 10/22. Param is agreeable to the plan. He states that they would prefer a facility in [place], but that they do not have a preference at this time. He was agreeable for DIETER to send referrals to the [place] facilities. DIETER contacted and faxed a referral to [facility], and [facility]. Awaiting screens.
--- NOTE | 2020-10-20 13:27 | NUR ---
Patient has attended all therapies this shift. Tolerating diet well with staff assisting patient with his meals. Patient currently working with ST at this time.
--- NOTE | 2020-10-20 14:10 | NUR ---
The patient has Medicare [employer]. SW faxed the patient's information to [facility] for auth for SNF. Awaiting auth and screens.
[2020-10-20 15:50] VITALS: BP 99/60; PULSE 83; TEMP 98
--- NOTE | 2020-10-20 19:39 | NUR ---
Patient was Alert, but confused requiring cuing much of the time; took his pills crushed with pudding; required to be fed for every meal; was incontinent with bladder this shift; and son stopped by to visit with him and took laundry home to wash for patient.
--- NOTE | 2020-10-20 21:00 | NUR ---
PT RESTING IN BED. SPEECH CLEAR BUT NOT ORIENTED. SPEAKS WITH GENERIC ANSWERS AT TIMES. PT HAS SOME LEFT SIDED WEAKNESS. TAKES pills crushed with pudding. CALL LIGHT IN REach. bed alarm set.
[2020-10-21 05:41] VITALS: BP 139/83; PULSE 84; TEMP 97.7
--- NOTE | 2020-10-21 09:33 | NUR ---
Patient resting in bed, call light in reach and bed alarm set. He had a large BM this morning that was loose. He took his pills crushed and with pudding. Was a Touch assist with going from bed to standing up and then a touch assist and cueing with transferring to the bathroom. He is currently working with ST at this time.
--- NOTE | 2020-10-21 11:12 | NUR ---
Patient reported a headache this morning at 9:45 AM, had already received prn tylenol with his morning meds. Vitals at time of headache were the following: BP 147/77; P 103; 100%. Patient continues with a headache reporting a 2/10 at 11:15 AM when working with OT. Will continue to monitor.
--- NOTE | 2020-10-21 15:27 | NUR ---
Patient resting in bed, call light in reach and bed alarm set. Patient has not been using the call light this afternoon. His alarm just signaled and he was attempting to get out of bed looking for some water to drink following his nap. Patient was given some water to drink and was then repositioned in bed. He is currently watching TV. Will continue to monitor.
--- NOTE | 2020-10-21 16:15 | NUR ---
DIETER checked [place] access to follow up on authorization for SNF. The patient's name did not show up. DIETER contacted Igor at [facility]. Igor reports that the patient does have Medicare [employer], but they do not have any information on him. He states that he will have to build the request for SNF. He states that SW will need to re-fax the patient's clinicals to them. Ref#[id number]. DIETER re-faxed the patient's clinicals to [facility]. DIETER contacted and faxed updates to [facility], [facility], and [facility]. [facility] requested a cognitive test. SW informed ST. ST performed the test. DIETER faxed the notes from to [facility].
--- NOTE | 2020-10-21 16:25 | NUR ---
DIETER contacted and updated the patient's son, Param. Param reports that they have chosen [facility] as their first preference. He states that he is open to the other facilities though, if [facility] cannot take.
[2020-10-21 16:45] VITALS: BP 130/66; PULSE 81; TEMP 97.7
--- NOTE | 2020-10-21 20:00 | NUR ---
PT SITTING IN RECLINER. MORE IMPULSIVE TONIGHT. TRYING TO GET UP PER SELF. TRANSFERRED TO BED. PT HAS LT SIDED WEAKNESS. CONFUSED. SOMETIMES ABLE TO DIRECT WITH CUES. POOR SAFETY JUDGEMENT. PT WEARS DIAPERS FOR INCONTINENT. DRY AT THIS TIME. CALL LIGHT IN REACH. BED ALARM SET.
--- NOTE | 2020-10-22 00:04 | NUR ---
OBTAINED [facility] [employer] FOR COVID TESTING FOR SNF PLACEMENT. SENT TO LAB.
[2020-10-22 05:26] VITALS: BP 161/81; PULSE 86; TEMP 98.3
--- NOTE | 2020-10-22 09:08 | NUR ---
SW contacted [facility] to follow up on auth. The area representative reports that they received clinicals, but his status is still pending. She suggests that SW contact them later, if [facility] does not contact SW.
--- NOTE | 2020-10-22 09:30 | NUR ---
Patient is doing well this morning. Assisted him to the bathrrom. Denies nausea and pain. He was incontinent of urine when he got into the bathroom. He is able to have a bowel movement without issues. No other changes at this time. Call kim nuñez. Left patient Samy SOREN in bathroom.
[2020-10-22] MEDS ORDERED: PROTONIX 40MG T40 MG PO (11:48)
[2020-10-22] MEDS ORDERED: TYLENOL 325MG325 MG PO (11:48)
[2020-10-22] MEDS ORDERED: MELATIN 3 MG-11 TAB PO (11:49)
[2020-10-22] MEDS ORDERED: DULCOLAX S10 MG/SUPP RC (11:52)
[2020-10-22] MEDS ORDERED: COZAAR 25MG25 MG/TAB PO (11:52)
[2020-10-22] MEDS ORDERED: NORVASC2.5 MG PO (11:54)
[2020-10-22] MEDS ORDERED: MIRALAX PA17 GM/Dose PO (11:54)
--- NOTE | 2020-10-22 11:54 | NUR ---
Delfina, IPR Director, reports that the patient was approved for SNF from 10/21-10/25, with an update on 10/25. SW notified and provided the Ref# to Ximena at [facility]. Ximena reports that they are able to accept the patient for a skilled stay. SW contacted and updated the patient's son, Param. Param and the patient's are agreeable to the plan. Param and the patient's plan to be up here around 1245 to see the patient and help him pack up his belongings before he leaves. The patient is to discharge today, 10/22, to [facility] for a skilled stay. Transportation was scheduled at 1300, via [facility]. DIETER informed the patient, his RN, and the patient's son, Param, of the time over the phone. They were all agreeable to the time. DIETER also read the IM form outloud to Param over the phone. Param verbalized understanding and gave SW approval to sign the form on his behalf. DIETER placed a copy of the form in the patient's room. No additional needs at this time.
[2020-10-22] MEDS ORDERED: ZOFRAN ODT4 MG PO (11:55)
[2020-10-22 12:19] VITALS: BP 161/81; PULSE 86; TEMP 98.3
[2020-10-22 12:46] VITALS: BP 161/81; PULSE 86; TEMP 98.3
--- NOTE | 2020-10-22 14:00 | NUR ---
Patient is discharging to [facility]. Report called to Luann. All belongings packed up and sent with patient. His family took some of the belongings home and some clothes to wash. Info packet sent with patient.
--- NOTE | 2020-10-25 15:08 | NUR ---
Discharge QIM scores were reviewed by the team. Code of 4 chosen for oral hygiene was determined by team discussion to be the most usual performance before interventions for this patient during the assessment period. Code of 4 chosen for toilet hygiene was determined by team discussion to be the most usual performance for this patient during the assessment period. Code of 4 chosen for toileting transfers was determined by team discussion to be the most usual performance for this patient during the assessment period. Code of 4 chosen for upper body dressing was determined by team discussion to be the most usual performance for this patient during the assessment period. Code of 4 chosen for lower body dressing was determined by team discussion to be the most usual performance for this patient during the assessment period. Code of 4 chosen for putting on/taking off footwear was determined by team discussion to be the most usual performance for this patient during the assessment period. Code of 4 chosen for rolling left to right was determined by team discussion to be the most usual performance for this patient during the assessment period. Code of 4 chosen for sit to lying was determined by team discussion to be the most usual performance for this patient during the assessment period. Code of 4 chosen for lying to sitting on side of bed was determined by team discussion to be the most usual performance for this patient during the assessment period. Code of 4 for sit to stand was determined by team discussion to be the most usual performance for this patient during the assessment period. Code of 4 for chair/bed to chair transfers was determined by team discussion to be the most usual performance for this patient during the assessment period. Code of 4 chosen for walk 10 feet on uneven surface was determined by team discussion to be the most usual performance for this patient during the assessment period.--PD Jaxson
== END 2020-10-22 14:00 | DRG 56 ==
LOC: UNDOADMIN 11:53
PROVIDERS: Physician Assistant; ADMIT Internal Medicine
DX: I69.354 Hemiplegia and hemiparesis following cerebral infarction affecting left non-dominant side (principal); A41.9 Sepsis, unspecified organism; R65.20 Severe sepsis without septic shock; F03.91 Unspecified dementia, unspecified severity, with behavioral disturbance; N39.0 Urinary tract infection, site not specified; I10 Essential (primary) hypertension; I69.392 Facial weakness following cerebral infarction; E11.9 Type 2 diabetes mellitus without complications; Z20.822 Contact with and (suspected) exposure to COVID-19; R05 Cough; B96.20 Unspecified Escherichia coli [E. coli] as the cause of diseases classified elsewhere; H54.40 Blindness, one eye, unspecified eye; Z79.82 Long term (current) use of aspirin; Z79.4 Long term (current) use of insulin; Z79.891 Long term (current) use of opiate analgesic; Z96.659 Presence of unspecified artificial knee joint
CPT/HCPCS: 99222-AI; 99231-AI; 99232-AI; 99233-AI; 99239; J0696; J1650; J1815; J7030; Q9967

== ENCOUNTER → 2020-11-20 | Outpatient (CLI) | payer MEDICARE ==
[~2020-11-20] MED LIST: ANUSOL HC CREAM30 GM TP; ASPIRIN 81M81 MG/TA2 PO; ATHLETE'S FOOT1% TP; CALCIUM 600 MG1 EAC2 PO; CATAPRES 0.1MG0.1 MG PO; COZAAR 25MG25 MG/TAB PO; COZAAR 50MG50 MG/TAB PO; DULCOLAX S10 MG/SUPP RC; GLUCOPHAGE1000 MG PO; GOOD SENSE ANTI-IT1% TP; HCTZ 25MG TAB25 MG PO; K-DUR20 MEQ PO; KAPSPARGO SPRIN25 MG PO; MAG-OX 400400 MG/TAB PO; MELATIN 3 MG-11 TAB PO; MIRALAX PA17 GM/Dose PO; NORVASC2.5 MG PO; NOVOLOG 100U100 U/M1 SQ; PLAVIX 75MG TAB75 MG PO; PROTONIX 40MG T40 MG PO; TYLENOL 325MG325 MG PO; ZOCOR 40MG40 MG PO; ZOFRAN ODT4 MG PO
[2020-11-20 20:15] LABS: COLLECTION METHOD CLEAN CATCH
[2020-11-20 20:22] LABS: MUCOUS Present /lpf; PH 5 (5-8); SQUAMOUS EPITHELIAL None Seen /hpf; URINE APPEARANCE Clear; URINE BACTERIA None Seen /hpf; URINE BILIRUBIN Negative (NEGATIVE); URINE BLOOD Negative (NEGATIVE); URINE COLOR Yellow; URINE GLUCOSE Negative (NEGATIVE); URINE KETONE 1+ (NEGATIVE); URINE LEUKOCYTE ESTERASE Negative (NEGATIVE); URINE NITRATE Negative (NEGATIVE); URINE PROTEIN(semi-quant) Negative (NEGATIVE); URINE RBC 0-2 /hpf; URINE UROBILINOGEN Negative (NEGATIVE); URINE WBC 0-2 /hpf
== END ==
LOC: ZCOL.LAB 13:32
PROVIDERS: Internal Medicine
DX: F01.51 Vascular dementia, unspecified severity, with behavioral disturbance (principal)

== ENCOUNTER 2021-01-17 08:58 | Inpatient (IN) | payer MEDICARE ==
[2021-01-17] VITALS (101 sets, daily range): BP systolic 97; BP diastolic 58; PULSE 140; O2SAT 51–99
[~2021-01-17] VITALS: Ht 195.6 cm; Wt 90.9 kg
[2021-01-17 09:42] LABS: HEMATOCRIT 49.7 % (42.0-52.0); HEMOGLOBIN 16.3 g/dl (13.5-18.0); MEAN CELL VOLUME 99 fl (80.0-100.0); MEAN CORPUSCULAR HEMOGLOBIN 33 pg (27.0-31.0); MEAN CORPUSCULAR HGB CONC 33 g/dl (33.0-37.0); MEAN PLATELET VOLUME 11.3 fl (7.4-10.4); PLATELET COUNT 286 K/mm3 (130-400); REDCELL DISTRIBUTION WIDTH-CV 15.5 % (11.5-14.5)
[2021-01-17 09:55] LABS: INR 1.3 (0.8-3.0); PROTHROMBIN TIME 14.3 SECONDS (9.7-12.8)
[2021-01-17 10:11] LABS: COLLECTION METHOD IN
[2021-01-17 10:16] LABS: ALANINE AMINOTRANSFERASE 182 U/L (4-49); ALBUMIN 3.6 gm/dL (3.5-5.0); ALKALINE PHOSPHATASE 117 U/L (50-136); ANION GAP 19 mmol/L (7-16); AST,SGOT 69 U/L (15-37); BILIRUBIN,TOTAL 0.7 mg/dL (0.0-1.0); BLOOD UREA NITROGEN 104 mg/dL (9-20); CARBON DIOXIDE 16 mmol/L (22-30); CHLORIDE 117 mmol/L (98-107); CREATINE KINASE 34 U/L (55-170); CREATININE, serum 3.72 (0.66-1.25); GLUCOSE 367 mg/dL (74-106); POTASSIUM 4.5 mmol/L (3.4-5.0); SODIUM 151 mmol/L (137-145); TOTAL PROTEIN 6.5 gm/dL (6.4-8.2)
[2021-01-17 10:18] LABS: ALCOHOL(ethanol),MEDICAL < 10 mg/dL
[2021-01-17 10:24] LABS: MUCOUS Present /lpf; PH 5 (5-8); SQUAMOUS EPITHELIAL 0-2 /hpf; URINE APPEARANCE Hazy; URINE BACTERIA None Seen /hpf; URINE BILIRUBIN Positive (NEGATIVE); URINE BLOOD Negative (NEGATIVE); URINE COLOR Amber; URINE GLUCOSE Negative (NEGATIVE); URINE KETONE Negative (NEGATIVE); URINE LEUKOCYTE ESTERASE Negative (NEGATIVE); URINE NITRATE Negative (NEGATIVE); URINE PROTEIN(semi-quant) Negative (NEGATIVE); URINE RBC 0-2 /hpf
[2021-01-17 10:36] LABS: BAND 59 % (0-10); LYMPHOCYTE 2 % (20.0-51.0); METAMYELOCYTE 1 % (0-0); NEUTROPHILS 31 % (42.0-75.2)
[2021-01-17 10:37] LABS: PLATELET ESTIMATE NORMAL (NORMAL)
[2021-01-17 10:38] LABS: PROLACTIN 19.8 ng/mL (3.7-17.9)
[2021-01-17 10:39] LABS: TROPONIN-I 0.065 ng/mL (0.000-0.035)
--- NOTE | 2021-01-17 10:43 | NUR ---
Initial visit; Patient in Emergency Department. Piece Dye Worker offered prayer for Kirby and comfort and assistance for his and son. Piece Dye Worker continues to look in on patient and family.
[2021-01-17 12:02] LABS: ARTERIAL BLD GAS TCO2 CT 14.6; ARTERIAL BLOOD GAS BASE EXCESS -11.1 (-2-2); ARTERIAL BLOOD GAS HCO3 13.7 meq/L (22-26); ARTERIAL BLOOD GAS PCO2 29.1 mmHg (35-45); ARTERIAL BLOOD GAS PO2 71.4 mmHg (80-100); ARTERIAL BLOOD GAS pH 7.29 (7.35-7.45)
--- NOTE | 2021-01-17 14:30 | NUR ---
Patient brought over from ER. Patient intubated and non-responsive. Approximately 5 minutes after arrival hospitalist informed this nurse that after discussing with family they have decided to make the patient comfort care and extubte. RT in room also at this time. GREG Mei roaster supervisor left with bring family over from the waiting room.
--- NOTE | 2021-01-17 14:59 | NUR ---
Family at bedside. Palliative extubation at this time. Lisette, RT present. Will continue to monitor. 1510 - Morphine & Ativan given for air hunger. RR 46, Spo2 80. Oral care & suctioning provided.
--- NOTE | 2021-01-17 18:15 | NUR ---
Patient noted to be asystole and verified by two RN's. Family and hospitalist notified.
--- NOTE | 2021-01-17 18:31 | NUR ---
[facility] notified of patient , referral number [id number]. Family has chosen [facility] in [place], october release body.
--- NOTE | 2021-01-17 20:59 | NUR ---
Patient discharge at this time.
== END 2021-01-17 21:00 | disposition expired | DRG 841 ==
LOC: COL.ER 08:58 → ICU 14:15
PROVIDERS: Student in an Organized Health Care Education/Training Program; ADMIT Student in an Organized Health Care Education/Training Program
PROC: 0BH17EZ Insertion of Endotracheal Airway into Trachea, Via Natural or Artificial Opening (ICD-10-PCS; principal; 2021-01-17)
PROC: 5A1935Z Respiratory Ventilation, Less than 24 Consecutive Hours (ICD-10-PCS; 2021-01-17)
PROC: 02HV33Z Insertion of Infusion Device into Superior Vena Cava, Percutaneous Approach (ICD-10-PCS; 2021-01-17)
DX: C85.99 Non-Hodgkin lymphoma, unspecified, extranodal and solid organ sites (principal); G93.40 Encephalopathy, unspecified; I69.354 Hemiplegia and hemiparesis following cerebral infarction affecting left non-dominant side; C71.9 Malignant neoplasm of brain, unspecified; N17.9 Acute kidney failure, unspecified; E87.2 Acidosis; E87.1 Hypo-osmolality and hyponatremia; I24.8 Other forms of acute ischemic heart disease; Z66 Do not resuscitate; Z51.5 Encounter for palliative care; I10 Essential (primary) hypertension; E11.65 Type 2 diabetes mellitus with hyperglycemia; Z20.822 Contact with and (suspected) exposure to COVID-19; R00.0 Tachycardia, unspecified; R79.89 Other specified abnormal findings of blood chemistry; F03.90 Unspecified dementia, unspecified severity, without behavioral disturbance, psychotic disturbance, mood disturbance, and anxiety; Z79.82 Long term (current) use of aspirin; Z79.4 Long term (current) use of insulin; Z88.8 Allergy status to other drugs, medicaments and biological substances
CPT/HCPCS: 99223-AI; C1751; C1892; J1815; J2060; J2270; J2543; J3010; J3370; J7030; J7050